=== PATIENT | female | born 1995 | race Caucasian/White ===

== ENCOUNTER 2021-01-19 06:59 | Day surgery (SDC) | payer MEDICAID, SELFPAY ==
[~2021-01-19] VITALS: Ht 160 cm; Wt 70.3 kg
[2021-01-19] MEDS ORDERED: SIMETHICONE 40 MG/0.6 ML ML ONE (07:11)
[2021-01-19 07:25] LABS: HCG,QUAL RESULT NEGATIVE (NEGATIVE)
[2021-01-19] MEDS: MIDAZOLAM HCL 5 MG/5 ML VIAL ONE ×3 (09:40→09:50)
[2021-01-19] MEDS ORDERED: DIPHENHYDRAMINE INJ 50 MG/ML VIAL ONE (09:41)
[2021-01-19] MEDS: fentaNYL CITRATE/PF 100 MCG/2 ML AMP ONE ×2 (09:45→09:48)
[2021-01-19 10:53] VITALS: BP_SYST 107
--- NOTE | 2021-01-19 22:43 | NUR ---
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
== END 2021-01-19 10:40 | disposition home or self-care (01) ==
LOC: EDSEX 06:59 → SDS 06:59 → SMU 06:59 → SDS 10:40
PROVIDERS: ATTEND Internal Medicine
DX: R10.13 Epigastric pain (principal); K29.50 Unspecified chronic gastritis without bleeding; Z20.828 Contact with and (suspected) exposure to other viral communicable diseases
CPT/HCPCS: 36415; 43239; 84703; 87081; 88305; 88312; 88313; 99152; G0378; J1200; J2250; J3010; J7030; U0003